=== PATIENT | female | born 1995 | race Caucasian/White ===

== ENCOUNTER 2018-11-18 16:30 | Inpatient (IN) | payer OTHER ==
[2018-11-18 17:22] VITALS: BMI 37.5
[2018-11-18] MEDS: ELECTROLYTE-148 SOLN 1,000 ML IV SCH (17:40)
[2018-11-18 18:19] LABS: BASO % 0.3 % (0-2.0); EOS % 0.2 % (0-4.5); HEMATOCRIT 35.1 % (32.4-45.2); HEMOGLOBIN 11.8 GM/dL (10.7-15.3); LYMPH % 18.6 % (8-40); MCH 27.9 pg (25.7-33.7); MCHC 33.6 g/dl (32.0-36.0); MEAN CELL VOLUME 83.2 fl (80-96); MEAN PLT VOLUME 10.2 fl (7.5-11.1); MONO % 4.7 % (3.8-10.2); NEUT % 76.2 % (42.8-82.8); PLATELET COUNT 184 K/MM3 (134-434); RBC 4.22 M/mm3 (3.60-5.2); RDW 15.4 % (11.6-15.6); WHITE BLOOD COUNT 7.7 K/mm3 (4.0-10.0)
[2018-11-18 18:42] LABS: INR 0.95 (0.83-1.09); PROTHROMBIN TIME (PATIENT) 11.2 SEC (9.7-13.0)
[2018-11-18 18:44] LABS: ACTIVATED PTT 32.2 SECONDS (25.2-36.5)
[2018-11-18 18:45] LABS: ANION GAP 9 MMOL/L (8-16); BLOOD UREA NITROGEN 7 mg/dL (7-18); CALCIUM 8.4 mg/dL (8.5-10.1); CHLORIDE 106 mmol/L (98-107); CO2 21 mmol/L (21-32); CREATININE 0.5 mg/dL (0.55-1.3); GLUCOSE,RANDOM 77 mg/dL (74-106); POTASSIUM 3.9 mmol/L (3.5-5.1); SODIUM 136 mmol/L (136-145)
--- NOTE | 2018-11-18 18:59 | HP ---
Past Medical History - Primary Care Physician PCP:: Augusto Rojas - Admission Chief Complaint: 39 by sono , 41 by weeks by date, previous c/s , PROM History of Present Illness: 23 yo f 39 weeks by sono 41 by date c/o rom since 3 pm 11/18/18 , clear fluid, mild cramps, no bleeding. no fever, cx 1ft, long, -3 mr, nitrazine positive , previous c/s ,wants , risks discussed History Source: Patient Limitations to Obtaining History: No Limitations - Past Medical History ...: 2 ...Para: 1 ...Term: 1 ...: 0 ...Spon : 0 ...Induced : 0 ...Multiple Gestation: 0 ...LMP: 02/04/18 ... Weeks Gestation by Dates: 41.0 ...EDC by Dates: 11/11/18 ...EDC by Sono: 11/21/18 - Past Surgical History Past Surgical History: Yes: Hx Myomectomy: No Hx Transabdominal Cerclage: No - Smoking History Smoking history: Never smoked Have you smoked in the past 12 months: No - Alcohol/Substance Use Hx Alcohol Use: No - Social History Usual Living Arrangement: Yes: With Spouse History of Recent Travel: No Home Medications - Allergies Allergies/Adverse Reactions: Allergies Allergy/AdvReac Type Severity Reaction Status Date / Time No Known Allergies Allergy Verified 11/18/18 17:03 - Home Medications Home Medications: Ambulatory Orders Vitamins (Sjr) - 1 tab PO DAILY 10/16/18 Review of Systems - Review of Systems Constitutional: reports: No Symptoms Eyes: reports: No Symptoms HENT: reports: No Symptoms Neck: reports: No Symptoms Cardiovascular: reports: No Symptoms Respiratory: reports: No Symptoms Gastrointestinal: reports: No Symptoms Genitourinary: reports: No Symptoms Breasts: reports: No Symptoms Reported Musculoskeletal: reports: No Symptoms Integumentary: reports: No Symptoms Neurological: reports: No Symptoms Endocrine: reports: No Symptoms Hematology/Lymphatic: reports: No Symptoms Psychiatric: reports: No Symptoms Physical Exam - Maternity Vital Signs: Vital Signs Temperature 98.3 F 11/18/18 18:00 Pulse Rate 81 11/18/18 18:00 Respiratory Rate 18 11/18/18 18:00 Blood Pressure 129/81 11/18/18 18:00 O2 Sat by Pulse Oximetry (%) Constitutional: Yes: Well Nourished, No Distress, Calm Eyes: Yes: WNL, Conjunctiva Clear, EOM Intact HENT: Yes: WNL, Atraumatic, Normocephalic Neck: Yes: WNL, Supple, Trachea Midline Cardiovascular: Yes: WNL, Regular Rate and Rhythm Breast(s): Yes: WNL - Abdominal Exam/OB Fundal Height: 38 Number of Fetuses: Single Presentation: Vertex Contractions: Yes Regularity: Irregular Intensity: Mild/Mod Monitor Mode: External Heart Rate Location: [facility] Category: I Accelerations: Uniform Decelerations: None - Vaginal Exam/OB Speculum Exam: No Dilatation (cm): 1 Effacement (%): 25 Amniotic Membrane Status: Ruptured Nitrazine Test: Positive Amniotic Fluid: Yes: Clear Presentation: Vertex/Position Station: -3 - Physical Exam Musculoskeletal: Yes: WNL Extremities: Yes: WNL Edema: Yes Edema: LLE: Trace, RLE: Trace Deep Tendon Reflex Grade: Normal +2 Psychiatric: Yes: WNL - Labs Lab Results: CBC, BMP 11/18/18 17:45 11/18/18 17:45 Hemorrhage Risk Assessment - Risk Factors Medium Risk Factors: Yes: None High Risk Factors: Yes: None Risk Score: 1 Risk Level: Medium Risk Problem List - Problems (1) Post term , 41 weeks Code(s): O48.0 - POST-TERM ; Z3A.41 - 41 WEEKS GESTATION OF (2) Post term , 41 weeks Code(s): O48.0 - POST-TERM ; Z3A.41 - 41 WEEKS GESTATION OF (3) PROM (premature rupture of membranes) Code(s): O42.90 - ANA ROM, 7TH0 BETW RUPT & ONST LABR, UNSP WEEKS OF GEST Qualifiers: PROM onset of labor timing: onset of labor more than 24 hours following rupture PROM gestational age: full term Qualified Code(s): O42.12 - Full- term premature rupture of membranes, onset of labor more than 24 hours following rupture (4) Previous section complicating Code(s): O34.219 - MATERNAL CARE FOR UNSP TYPE SCAR FROM PREVIOUS DEL Assessment/Plan admit , fhm wants , aware of risks revaluate after in active labor
[2018-11-18] MEDS ORDERED: PROMETHAZINE HCL 25 MG/1 ML VIAL IVPUSH ONE (19:00)
[2018-11-18] MEDS ORDERED: BUTORPHANOL TARTRATE 1 MG/ML VIAL IVPUSH ONE (19:00)
[2018-11-19] MEDS: ELECTROLYTE-148 SOLN 1,000 ML IV SCH (01:04)
[2018-11-19] MEDS ORDERED: CITRIC ACID/SODIUM CITRATE 30 ML UNIT-DOSE CUP PO ONE (08:28)
[2018-11-19] MEDS ORDERED: AMPICILLIN SODIUM 2 GM VIAL ONE (08:41)
[2018-11-19] MEDS ORDERED: AMPICILLIN - 2 GM in SODIUM CHLORIDE 100 ML IVPB ONE (09:00)
[2018-11-19] MEDS ORDERED: OXYTOCIN 20 UNITS in 0.9% NS 20 UNIT/1,000 ML INFUS.BAG IV ONE ×2 (10:26→11:52)
--- NOTE | 2018-11-19 10:30 | PN ---
Progress Note (short form) - Note Progress Note: cx 1 cm , long -3 ,srom, clear ,contraction irregular in view of prolonged PROm, previous c/s, no dilation, advised repeat c/s ,risks discussed Problem List - Problems (1) Post term , 41 weeks Code(s): O48.0 - POST-TERM ; Z3A.41 - 41 WEEKS GESTATION OF (2) Post term , 41 weeks Code(s): O48.0 - POST-TERM ; Z3A.41 - 41 WEEKS GESTATION OF (3) PROM (premature rupture of membranes) Code(s): O42.90 - ANA ROM, 7TH0 BETW RUPT & ONST LABR, UNSP WEEKS OF GEST Qualifiers: PROM onset of labor timing: onset of labor more than 24 hours following rupture PROM gestational age: full term Qualified Code(s): O42.12 - Full- term premature rupture of membranes, onset of labor more than 24 hours following rupture (4) Previous section complicating Code(s): O34.219 - MATERNAL CARE FOR UNSP TYPE SCAR FROM PREVIOUS DEL
[2018-11-19] MEDS ORDERED: morphine SULFATE/Preservative Free 0.5 MG/ML (1cc Syringe) ONE (10:40)
[2018-11-19] MEDS ORDERED: BENZOCAINE 28 GM HEMORRHOIDAL OINTMENT PR PRN (10:42)
[2018-11-19] MEDS ORDERED: oxyCODONE HCL 5 MG TABLET PO PRN ×2 (10:42)
[2018-11-19] MEDS ORDERED: WITCH HAZEL 50% (TUCKS) 40 PAD/JAR PAD TP PRN (10:42)
[2018-11-19] MEDS ORDERED: BENZOCAINE 20% 57 GM BOTTLE TP PRN (10:42)
[2018-11-19] MEDS ORDERED: METHYLERGONOVINE MALEATE 0.2 MG/1 ML AMP IM PRN (10:42)
[2018-11-19] MEDS ORDERED: diphenhydrAMINE HCL 25 MG CAPSULE (FP) PO PRN (10:42)
[2018-11-19] MEDS ORDERED: OXYTOCIN 20 UNITS in 0.9% NS 20 UNIT/1,000 ML INFUS.BAG IV SCH (10:45)
[2018-11-19] MEDS ORDERED: ONDANSETRON 4 MG/2 ML VIAL IVPUSH PRN (10:55)
[2018-11-19] MEDS ORDERED: ACETAMINOPHEN 325 MG TABLET (FP) PO PRN (10:55)
[2018-11-19] MEDS ORDERED: IBUPROFEN 600 MG TABLET (FP) PO PRN (10:55)
[2018-11-19] MEDS: IBUPROFEN 800 MG/8 ML IJ IVPB PRN ×2 (15:01→23:44)
[2018-11-19] MEDS: CEFAZOLIN 1 GM/D5W 1 GM/50 ML BAG IVPB SCH (18:26)
[2018-11-19] MEDS ORDERED: ceFAZolin SODIUM 1 GM VIAL ONE (19:23)
[2018-11-19] MEDS ORDERED: PHENYLEPHRINE HCL 10 MG/1 ML SINGLE DOSE VIAL ONE (19:23)
[2018-11-20] MEDS: CEFAZOLIN 1 GM/D5W 1 GM/50 ML BAG IVPB SCH (01:42)
--- NOTE | 2018-11-20 06:34 | PN ---
Progress Note (short form) - Note Progress Note: pod 1 doing well, ambulating, passing gas CBC, BMP 11/18/18 17:45 11/18/18 17:45 Last Vital Signs Temp Pulse Resp BP Pulse Ox 98.3 F 80 18 125/68 100 11/20/18 06:00 11/20/18 06:00 11/20/18 06:00 11/20/18 06:00 11/19/18 21:00 abdomen soft, no distension, no cva incision dry, clean no calf tenderness no excess vaginal bleeding plan ambulate, cbc, advance diet Problem List - Problems (1) Post term , 41 weeks Code(s): O48.0 - POST-TERM ; Z3A.41 - 41 WEEKS GESTATION OF (2) Post term , 41 weeks Code(s): O48.0 - POST-TERM ; Z3A.41 - 41 WEEKS GESTATION OF (3) PROM (premature rupture of membranes) Code(s): O42.90 - ANA ROM, 7TH0 BETW RUPT & ONST LABR, UNSP WEEKS OF GEST Qualifiers: PROM onset of labor timing: onset of labor more than 24 hours following rupture PROM gestational age: full term Qualified Code(s): O42.12 - Full- term premature rupture of membranes, onset of labor more than 24 hours following rupture (4) Previous section complicating Code(s): O34.219 - MATERNAL CARE FOR UNSP TYPE SCAR FROM PREVIOUS DEL
[2018-11-20 07:42] LABS: BASO % 0.4 % (0-2.0); EOS % 0.3 % (0-4.5); HEMATOCRIT 33.5 % (32.4-45.2); HEMOGLOBIN 11.4 GM/dL (10.7-15.3); LYMPH % 15.4 % (8-40); MCH 28.7 pg (25.7-33.7); MCHC 34.1 g/dl (32.0-36.0); MEAN CELL VOLUME 84.1 fl (80-96); MEAN PLT VOLUME 10.2 fl (7.5-11.1); MONO % 5.4 % (3.8-10.2); NEUT % 78.5 % (42.8-82.8); PLATELET COUNT 167 K/MM3 (134-434); RBC 3.98 M/mm3 (3.60-5.2); RDW 15.2 % (11.6-15.6); WHITE BLOOD COUNT 9.5 K/mm3 (4.0-10.0)
[2018-11-20] MEDS: IBUPROFEN 800 MG/8 ML IJ IVPB PRN (07:54)
[2018-11-20] MEDS: DEXTROSE 5%-LACTATED RINGERS 1,000 ML IV SCH (08:00)
--- NOTE | 2018-11-20 08:11 | OP ---
DATE OF OPERATION: 11/19/2018 PREOPERATIVE DIAGNOSIS: 39 weeks, previous section, ruptured membrane, trial of vaginal after , failed vaginal after , failure to dilate. POSTOPERATIVE DIAGNOSIS: 39 weeks, previous section, ruptured membrane, trial of vaginal after , failed vaginal after , failure to dilate. PROCEDURE: Repeat low segment transverse section. SURGEON: Augusto Rojas MD BLENDING MACHINE FEEDER: JORI Cooper ANESTHESIA: Spinal. ANESTHESIOLOGIST: Fernando Harrell MD ESTIMATED BLOOD LOSS: 500 mL OPERATION: Patient was taken to the operating room, had adequate spinal anesthesia. Abdomen and perineum were prepped and draped. Pfannenstiel abdominal skin incision was made over the previous incision. Abdominal wall was cut [id number] until peritoneum was exposed and incised. Upon entering the abdominal cavity, lower uterine segment was identified and uterovesical fold of peritoneum established. Bladder was pushed down. Then a low transverse uterine incision was made and incision extended laterally. Amniotic sac was entered. Head delivered from occiput posterior position. Nasopharynx was suctioned and live baby was delivered without any difficulty. Placenta was delivered manually. Uterine cavity was cleaned out of remaining tissue. Uterine incision was closed in 2 layers; first layer with 0 Biosyn continuous suture, the second layer with 0 Biosyn imbricating the first layer. Bladder flap was closed with 0 Biosyn continuous suture. Both tubes and ovaries were checked and normal. No active bleeding was seen. All of the lap pad, sponge and instrument counts were correct. Then peritoneum was closed with 0 Biosyn continuous suture. Muscles were brought together with interrupted suture of 0 Biosyn. Fascia was closed with 0 Biosyn continuous suture, subcutaneous fat interrupted suture of 0 Biosyn and the skin was closed with chaparrita. Patient tolerated the procedure well, left the OR in good condition. Juan Carlos [id number]
[2018-11-20] MEDS: ENOXAPARIN NA (PORCINE) 40 MG/0.4 ML DISP.SYRIN SQ SCH (09:55)
[2018-11-20] MEDS ORDERED: BISACODYL 10 MG SUPP.RECT PR PRN (10:42)
[2018-11-20] MEDS ORDERED: OXYTOCIN 30 UNITS in 0.9% NS 30 UNIT/500 ML INFUS.BAG IVPB ONE (11:24)
[2018-11-20] MEDS: AMPICILLIN - 1 GM in SODIUM CHLORIDE 100 ML IVPB SCH (13:11)
--- NOTE | 2018-11-20 14:26 | PN ---
Progress Note (short form) - Note Progress Note: POD1 s/p spinal with duramorph for C/S. No back pain, no NOLEN, able to ambulate. Incisional pain is mimimal. No anesthetic issues/complications.
[2018-11-20] MEDS: IBUPROFEN 600 MG TABLET (FP) PO PRN (16:38)
[2018-11-20] MEDS: ACETAMINOPHEN 325 MG TABLET (FP) PO PRN (16:38)
[2018-11-20] MEDS: SIMETHICONE 80 MG TAB.CHEW (FP) PO PRN (16:39)
[2018-11-21] MEDS: IBUPROFEN 600 MG TABLET (FP) PO PRN ×3 (04:48→19:20)
[2018-11-21] MEDS: ACETAMINOPHEN 325 MG TABLET (FP) PO PRN ×3 (04:48→19:21)
[2018-11-21] MEDS: SIMETHICONE 80 MG TAB.CHEW (FP) PO PRN ×3 (04:49→19:20)
[2018-11-21] MEDS: AMPICILLIN - 1 GM in SODIUM CHLORIDE 100 ML IVPB SCH (07:08)
[2018-11-21] MEDS: ENOXAPARIN NA (PORCINE) 40 MG/0.4 ML DISP.SYRIN SQ SCH (10:09)
--- NOTE | 2018-11-21 14:56 | PN ---
Post Progress Note - Subjective Subjective: 23 yo Para 2 status post repeat , seen and evaluated, doing well. She's out of bed to chair, breast feeding. Post Day: 2 Type of Delivery: Repeat C/S Vital Signs: Vital Signs Temperature 97.8 F 11/21/18 10:00 Pulse Rate 81 11/21/18 10:00 Respiratory Rate 20 11/21/18 10:00 Blood Pressure 119/70 11/21/18 10:00 O2 Sat by Pulse Oximetry (%) 100 11/19/18 21:00 Breast Exam: Yes: Soft Uterus: Yes: Fundus Firm Incision: Yes: Dressing dry and intact Abdomen/GI: Yes: Abdomen soft, Tolerating PO Lochia: Yes: Rubra Lochia, amount: Small Extremities: Yes: Calves non-tender Activity: Ambulating - Labs Labs: CBC WBC 9.5 K/mm3 (4.0-10.0) 11/20/18 06:50 RBC 3.98 M/mm3 (3.60-5.2) 11/20/18 06:50 Hgb 11.4 GM/dL (10.7-15.3) 11/20/18 06:50 Hct 33.5 % (32.4-45.2) 11/20/18 06:50 MCV 84.1 fl (80-96) 11/20/18 06:50 MCH 28.7 pg (25.7-33.7) 11/20/18 06:50 MCHC 34.1 g/dl (32.0-36.0) 11/20/18 06:50 RDW 15.2 % (11.6-15.6) 11/20/18 06:50 Plt Count 167 K/MM3 (134-434) 11/20/18 06:50 MPV 10.2 fl (7.5-11.1) 11/20/18 06:50 Absolute Neuts (auto) 7.4 K/mm3 (1.5-8.0) 11/20/18 06:50 Neutrophils % 78.5 % (42.8-82.8) 11/20/18 06:50 Lymphocytes % 15.4 % (8-40) 11/20/18 06:50 Monocytes % 5.4 % (3.8-10.2) 11/20/18 06:50 Eosinophils % 0.3 % (0-4.5) 11/20/18 06:50 Basophils % 0.4 % (0-2.0) 11/20/18 06:50 Nucleated RBC % 0 % (0-0) 11/20/18 06:50 Problem List - Problems (1) Status post repeat low transverse section Code(s): Z98.891 - HISTORY OF UTERINE SCAR FROM PREVIOUS SURGERY Assessment/Plan Status post repeat Ambulation Analgesia as needed Continue care
[2018-11-21] MEDS: ELECTROLYTE-148 SOLN 1,000 ML IV SCH (19:12)
[2018-11-21] MEDS: DEXTROSE 5%-LACTATED RINGERS 1,000 ML IV SCH (19:13)
[2018-11-21] MEDS ORDERED: SENNOSIDES/DOCUSATE COMBO (SENNA PLUS) TABLET (UD) PO PRN (22:00)
[2018-11-22] MEDS: SIMETHICONE 80 MG TAB.CHEW (FP) PO PRN (03:28)
[2018-11-22] MEDS: ACETAMINOPHEN 325 MG TABLET (FP) PO PRN (03:29)
[2018-11-22 08:07] LABS: BASO % 0.2 % (0-2.0); HEMATOCRIT 31.8 % (32.4-45.2); HEMOGLOBIN 10.6 GM/dL (10.7-15.3); LYMPH % 23.8 % (8-40); MCH 27.9 pg (25.7-33.7); MCHC 33.3 g/dl (32.0-36.0); MEAN CELL VOLUME 83.7 fl (80-96); MEAN PLT VOLUME 9.8 fl (7.5-11.1); MONO % 6.2 % (3.8-10.2); NEUT % 67.8 % (42.8-82.8); PLATELET COUNT 206 K/MM3 (134-434); RDW 15.8 % (11.6-15.6); WHITE BLOOD COUNT 6.2 K/mm3 (4.0-10.0)
--- NOTE | 2018-11-22 08:23 | DS ---
Physical Exam-ARCHITECT IN TRAINING Vital Signs: Vital Signs Temperature 98.0 F 11/21/18 21:55 Pulse Rate 75 11/21/18 21:55 Respiratory Rate 18 11/21/18 21:55 Blood Pressure 114/79 11/21/18 21:55 O2 Sat by Pulse Oximetry (%) 100 11/19/18 21:00 Constitutional: Yes: Well Nourished, No Distress, Calm Eyes: Yes: WNL, Conjunctiva Clear, EOM Intact HENT: Yes: WNL, Atraumatic, Normocephalic Neck: Yes: WNL, Supple, Trachea Midline Cardiovascular: Yes: WNL, Regular Rate and Rhythm Respiratory: Yes: WNL, Regular, CTA Bilaterally Gastrointestinal: Yes: WNL ...Rectal Exam: Yes: WNL Renal/: Yes: WNL Uterus: Yes: Firm ....Post : Yes: Uterus firm, Uterus non-tender, Slight lochia rubra Breast(s): Yes: WNL Musculoskeletal: Yes: WNL Extremities: Yes: WNL Edema: No Integumentary: Yes: WNL Wound/Incision: Yes: Clean/Dry, Well Approximated, Ivan Intact Neurological: Yes: WNL, Alert, Oriented ...Motor Strength: WNL Psychiatric: Yes: WNL, Alert, Oriented Labs: CBC, BMP 11/18/18 17:45 Delivery - Delivery Section: Primary (no complication) Type of Anesthesia: Spinal Episiotomy/Laceration: None EBL (cc): 500 Delivery, Single - Stages of Labor Date 1st Stage Initiatied: 11/18/18 Time 1st Stage Initiated: 15:00 Date of Delivery: 11/19/18 Time of Delivery: 11:03 Time Placenta Delivered: 11:04 Placenta: Yes: Spontaneous - Condition of Infant Landing Gear Mechanic/Bridge Instructor Present: Yes Name: Danyell Shultz Infant Gender: Female Weight: 7 lb 7 oz Position: Right, OT Total Hours ROM (Hrs/Mins): 20HRS 4MIN - 1 Minute Total Score: 9 5 Minutes Total Score: 9 - Feeding Plan Initial Plan: Exclusive throughout hospitalization Discharge Summary Reason For Visit: LABOR Current Active Problems PROM (premature rupture of membranes) (Acute) Post term , 41 weeks (Acute) Post term , 41 weeks (Acute) Previous section complicating (Acute) Status post repeat low transverse section (Acute) Procedures: Principal: LST c/s - Instructions Diet, Activity, Other Instructions: regular diet, follow up [facility] care 1 week, if fever, pain, heavy vaginal bleeding call Referrals: Augusto Rojas MD [Staff Physician] - - Home Medications Comprehensive Discharge Medication List: Ambulatory Orders Vitamins (Sjr) - 1 tab PO DAILY 10/16/18 Ibuprofen [Motrin -] 600 mg PO QID #28 tablet 11/22/18
[2018-11-22 09:17] VITALS: BP 129/73; PULSE 81; TEMP 97.8
[2018-11-22] MEDS: ENOXAPARIN NA (PORCINE) 40 MG/0.4 ML DISP.SYRIN SQ SCH (09:42)
--- NOTE | 2018-11-24 15:29 | PATH ---
Surgical Pathology Report Patient Name: BREN BURCH Med. Rec. #: [id number] /Age/Gender: 1995 (Age: 23) / F Account: [id number] Location: [facility] OBS/PULP OPERATOR Taken: 11/19/2018 Received: 11/20/2018 Reported: 11/24/2018 Physicians: Augusto Rojas M.D. Specimen(s) Received PLACENTA Clinical History A , 39.5 weeks, fail , prolonged rupture of membranes Final Diagnosis PLACENTA: THIRD TRIMESTER PLACENTA WITH FOCAL PERIVILLOUS FIBRIN DEPOSITION AND FOCAL CALCIFICATION. TRIVASCULAR CORD. MEMBRANES WITH NO DIAGNOSTIC ABNORMALITIES. Electronically Signed Hailey Palacios M.D. Gross Description The specimen is received fresh labeled placenta and is a 455 gram, 18.0 x 15.0 x 2.3 cm. placenta with attached membranes and umbilical cord. The attached membranes are kay, thick, and insert marginally. The umbilical cord measures 30 cm. in length and averages 1 cm. in diameter. The cord inserts eccentrically, 4.5 cm. to the nearest margin. No true knots or strictures are identified. Cut surface of the umbilical cord reveals 3 vessels. The surface is bach-blue with minimal fibrin deposition and appropriate caliber vessels. The maternal surface is red-brown with focal defects. Sectioning reveals red-brown, spongy parenchyma. No lesions are identified. Instrument Room Technician sections are submitted in three cassettes as follows: 1- membrane rolls and umbilical cord; 2-3- full thickness sections of placenta. 11/21/201811/21/2018
== END 2018-11-22 11:20 | disposition home or self-care (01) | DRG 540 ==
LOC: JLDR 16:30 → J3W 11-19 13:43
PROVIDERS: ADMIT Obstetrics & Gynecology; ATTEND Obstetrics & Gynecology
PROC: 10D00Z1 Extraction of Products of Conception, Low, Open Approach (ICD-10-PCS; principal; 2018-11-19)
DX: O42.12 Full-term premature rupture of membranes, onset of labor more than 24 hours following rupture (principal); O62.0 Primary inadequate contractions; O34.219 Maternal care for unspecified type scar from previous cesarean delivery; Z3A.39 39 weeks gestation of pregnancy; Z37.0 Single live birth
CPT/HCPCS: 36415; 80048; 85025; 85610; 85730; 86593; 86850; 86900; 86901; 88307-TC

== ENCOUNTER 2019-03-30 02:13 | Inpatient (IN) | payer OTHER ==
[2019-03-30] MEDS ORDERED: ACETAMINOPHEN 1000 MG/100 ML VIAL (NON FORMULARY) IVPB ONE (02:40)
[2019-03-30] MEDS ORDERED: FAMOTIDINE 20 MG/50 ML IVPB 20 MG/50 ML MG IVPB ONE (02:40)
[2019-03-30] MEDS ORDERED: SODIUM CHLORIDE 1,000 ML IV STA (02:40)
--- NOTE | 2019-03-30 02:40 | PDOC ---
History of Present Illness - General Chief Complaint: Pain, Acute Stated Complaint: ABD PAIN Time Seen by Provider: 03/30/19 02:35 History Source: Patient Exam Limitations: No Limitations - History of Present Illness Initial Comments: 24 yo obese F who denies any significant pmh presents to the Er with 1 month of epigastric abdominal pain which radiates to the back. She states it was particularly bad today so she decided to come and be evaluated. She states it is occasionally worse after she eats food. She states that she had two episodes of nausea and NBNB vomitus today. She states her bowel movements have been normal with no diarrhea or constipation. Patient states she took motrin for her pain which helped significantly for a few hours but then the pain returned. Denies fevers, chills, or infections. Denies dysuria, frequency, urgency. LMP: 03/11 PCP: None PSH: Social Hx: Denies smoking, drinking, or other substance usage Allergies: NKA, NKDA Past History - Past Medical History Allergies/Adverse Reactions: Allergies Allergy/AdvReac Type Severity Reaction Status Date / Time No Known Allergies Allergy Verified 11/18/18 17:03 Asthma: No Cancer: No Cardiac Disorders: No Diabetes: No HTN: No Seizures: No Thyroid Disease: No - Suicide/Smoking/Psychosocial Hx Smoking History: Never smoked Have you smoked in the past 12 months: No Hx Alcohol Use: No Drug/Substance Use Hx: No Hx Substance Use Treatment: No Review of Systems - Review of Systems Able to Perform ROS?: Yes Comments:: CONSTITUTIONAL: Absent: fever, no chills, no fatigue EYES: Absent: visual changes ENT: Absent: ear pain, no sore throat CARDIOVASCULAR: Absent: chest pain, no palpitations RESPIRATORY: Absent: cough, no SOB GI: Present: Abdominal pain, nausea, vomiting Absent: no constipation, no diarrhea GENITOURINARY: Absent: dysuria, no frequency, no hematuria MUSKULOSKELETAL: Present: back pain Absent: no arthralgia, no myalgia SKIN: Absent: rash NEURO: Absent: headache *Physical Exam - Physical Exam Comments: GENERAL: Well-appearing, well-nourished. Mild distress. HEENT: Normocephalic, atraumatic. PERRL, EOM intact. CARDIOVASCULAR: Normal S1, S2. Regular rate and rhythm. PULMONARY: No evidence of respiratory distress. Lungs clear to auscultation bilaterally. No wheezing, rales or rhonchi. ABDOMEN: There is significant epigastric and RUQ TTP. + torres sign. Normal bowel sounds. Abdomen is soft with no guarding or rebound. EXTREMITIES: Normal ROM in all four extremities. No gross deformities. SKIN: Warm, dry. No rash NEUROLOGICAL: No focal neurological deficits. Procedures - Bedside Ultrasound Bedside Ultrasound: Gallbladder Remarks: Gallbladder POCUS: Patient has multiple large stones with shadowing at the neck + Sono torres sign + Wall edema + Wall thickening + Tyler-cholecystic fluid Impression: Acute cholecystitis ED Treatment Course - LABORATORY CBC & Chemistry Diagram: 03/30/19 03:06 03/30/19 03:06 Medical Decision Making - Medical Decision Making 24 yo obese F who denies any significant pmh presents to the Er with 1 month of epigastric abdominal pain which radiates to the back. She states it was particularly bad today so she decided to come and be evaluated. She states it is occasionally worse after she eats food. She states that she had two episodes of nausea and NBNB vomitus today. She states her bowel movements have been normal with no diarrhea or constipation. Patient states she took motrin for her pain which helped significantly for a few hours but then the pain returned. Denies fevers, chills, or infections. Denies dysuria, frequency, urgency. LMP: 03/11 Vital Signs Temp Pulse Resp BP Pulse Ox 97.9 F 83 18 119/84 100 03/30/19 02:46 03/30/19 02:46 03/30/19 02:46 03/30/19 02:46 03/30/19 02:46 MDM: 24 yo obese F presents with a month of epigastric pain radiating to back with acute exacerbation. Pain seems most suspicious to be either gastric vs gallbladder in origin. Will start with labs, urine, and a GI cocktail than do a bedisde RUQ us to assess for gallstones/cholecystitis. Plan: Labs, urine, IV hydration, analgesia, GI cocktail, POCUS RUQ, re-assess. Labs: Elevated LFT's Urine: Unremarkable US: large stones at neck with shadowing, + sono torres sign, tyler-chol fluid, wall edema and thickening Impression: Cholecystitis Patient will be signed out to day team to obtain a formal RUQ us, then have surgery consulted, and admitted to hospital. Disposition: Will be adfmitted to hospital *DC/Admit/Observation/Transfer Diagnosis at time of Disposition: Choledocholithiasis, Cholecystitis - Discharge Dispostion Condition at time of disposition: Stable Decision to Admit order: Yes - Referrals - Patient Instructions - Post Discharge Activity
[2019-03-30] MEDS ORDERED: ONDANSETRON 4 MG/2 ML VIAL IVPUSH ONE ×2 (02:41→07:51)
[2019-03-30] MEDS ORDERED: MAG HYDROX/AL HYDROX/SIMETH -MYLANTA- ORAL SUSPENSION PO ONE (02:41)
[2019-03-30] MEDS ORDERED: ACETAMINOPHEN INJECTION 100 ML IVPB ONE (02:55)
[2019-03-30] MEDS ORDERED: ONDANSETRON 4 MG/2 ML VIAL ONE ×2 (02:55→07:59)
[2019-03-30] MEDS ORDERED: MAG HYDROX/AL HYDROX/SIMETH 30 ML UNIT-DOSE CUP ONE (02:55)
[2019-03-30 03:16] LABS: BASO % 0.6 % (0-2.0); EOS % 0.9 % (0-4.5); HEMATOCRIT 39.5 % (32.4-45.2); HEMOGLOBIN 13.3 GM/dL (10.7-15.3); LYMPH % 23.7 % (8-40); MCH 28.6 pg (25.7-33.7); MCHC 33.8 g/dl (32.0-36.0); MEAN CELL VOLUME 84.8 fl (80-96); MEAN PLT VOLUME 9.2 fl (7.5-11.1); MONO % 7.4 % (3.8-10.2); NEUT % 67.4 % (42.8-82.8); PLATELET COUNT 240 K/MM3 (134-434); RBC 4.66 M/mm3 (3.60-5.2); RDW 13.6 % (11.6-15.6); WHITE BLOOD COUNT 4.9 K/mm3 (4.0-10.0)
[2019-03-30 03:26] LABS: URINE APPEARANCE CLEAR; URINE BILIRUBIN 2+ (NEGATIVE); URINE COLOR DK YELLOW; URINE GLUCOSE (UA) NEGATIVE (NEGATIVE); URINE KETONE NEGATIVE (NEGATIVE); URINE LEUK ESTERASE NEGATIVE (NEGATIVE); URINE NITRITE NEGATIVE (NEGATIVE); URINE PROTEIN TRACE (NEGATIVE)
[2019-03-30 03:43] LABS: ALBUMIN 4.3 g/dl (3.4-5.0); BILIRUBIN,TOTAL 2.4 mg/dL (0.2-1); BLOOD UREA NITROGEN 10.4 mg/dL (7-18); CALCIUM 9.5 mg/dL (8.5-10.1); CREATININE 0.6 mg/dL (0.55-1.3); POTASSIUM 3.8 mmol/L (3.5-5.1); TOT PROT 7.8 g/dl (6.4-8.2)
--- NOTE | 2019-03-30 04:01 | PDOC ---
Attending Attestation - Resident Resident Name: Andrea Carvajal - ED Attending Attestation I have performed the following: I have examined & evaluated the patient, The case was reviewed & discussed with the resident, I agree w/resident's findings & plan, Exceptions are as noted - HPI HPI: 03/30/19 04:20 24F no pmh, obese here with 1 month of episodic epigastric abdominal px, worsened by eating, a/w nbnb nv. No f/c, sick contacts, recent travel, surgeries - Physicial Exam PE: 03/30/19 04:21 NAD, AOx3 +RUQ TTP, no guarding, no rebound Agree with detailed exam as documented by resident - Medical Decision Making 03/30/19 04:22 Gastritis? Given hpi + exam findings concern for gallbladder pathology POCUS +GB wall thickening, stones f/u labs, RUQ US analgesia re-eval dispo per clinical course
[2019-03-30] MEDS ORDERED: morphine CARPU-JECT 4 MG/1 ML DISP.SYRIN IVPUSH ONE ×2 (04:30→05:54)
[2019-03-30] MEDS ORDERED: SODIUM CHLORIDE 1,000 ML IV SCH (04:30)
[2019-03-30] MEDS ORDERED: morphine SULFATE 4 MG/ML VIAL ONE ×2 (04:40→05:57)
[2019-03-30 05:35] LABS: INR 1.1 (0.83-1.09)
[2019-03-30] MEDS ORDERED: METOCLOPRAMIDE HCL INJECTION 10 MG/2 ML VIAL ONE (05:56)
[2019-03-30] MEDS ORDERED: METOCLOPRAMIDE HCL INJECTION 10 MG/2 ML VIAL IVPUSH ONE (05:56)
--- NOTE | 2019-03-30 07:36 | PDOC ---
*Physical Exam - Vital Signs Last Vital Signs Temp Pulse Resp BP Pulse Ox 97.9 F 75 17 120/71 100 03/30/19 02:46 03/30/19 06:06 03/30/19 06:06 03/30/19 06:06 03/30/19 06:08 ED Treatment Course - LABORATORY CBC & Chemistry Diagram: 03/30/19 03:06 03/30/19 03:06 - ADDITIONAL ORDERS Additional order review: Laboratory Results 03/30/19 03/30/19 03/30/19 04:46 04:46 04:46 PT with INR 13.00 INR 1.10 H PTT (Actin FS) 34.2 Sodium Potassium Chloride Carbon Dioxide Anion Gap BUN Creatinine Est GFR (CKD-EPI)AfAm Est GFR (CKD-EPI)NonAf Random Glucose Lactic Acid Calcium Total Bilirubin AST ALT Alkaline Phosphatase Total Protein Albumin Lipase Urine Color Urine Appearance Urine pH Ur Specific [place] Urine Protein Urine Glucose (UA) Urine Ketones Urine Blood Urine Nitrite Urine Bilirubin Urine Urobilinogen Ur Leukocyte Esterase Urine HCG, Qual Blood Type O POSITIVE Antibody Screen Negative 03/30/19 03/30/19 03/30/19 03:06 03:06 03:01 PT with INR INR PTT (Actin FS) Sodium 138 Potassium 3.8 Chloride 103 Carbon Dioxide 26 Anion Gap 9 BUN 10.4 Creatinine 0.6 Est GFR (CKD-EPI)AfAm 145.80 Est GFR (CKD-EPI)NonAf 125.80 Random Glucose 104 Lactic Acid 0.6 Calcium 9.5 Total Bilirubin 2.4 H AST 755 H ALT 626 H Alkaline Phosphatase 183 H Total Protein 7.8 Albumin 4.3 Lipase 121 Urine Color Urine Appearance Urine pH Ur Specific [place] Urine Protein Urine Glucose (UA) Urine Ketones Urine Blood Urine Nitrite Urine Bilirubin Urine Urobilinogen Ur Leukocyte Esterase Urine HCG, Qual Negative Blood Type Antibody Screen 03/30/19 03:01 PT with INR INR PTT (Actin FS) Sodium Potassium Chloride Carbon Dioxide Anion Gap BUN Creatinine Est GFR (CKD-EPI)AfAm Est GFR (CKD-EPI)NonAf Random Glucose Lactic Acid Calcium Total Bilirubin AST ALT Alkaline Phosphatase Total Protein Albumin Lipase Urine Color Dk yellow Urine Appearance Clear Urine pH 6.0 Ur Specific [place] 1.029 Urine Protein Trace Urine Glucose (UA) Negative Urine Ketones Negative Urine Blood Negative Urine Nitrite Negative Urine Bilirubin 2+ H Urine Urobilinogen 1.0 Ur Leukocyte Esterase Negative Urine HCG, Qual Blood Type Antibody Screen 03/30/19 03:06 RBC 4.66 MCV 84.8 MCHC 33.8 RDW 13.6 D MPV 9.2 Neutrophils % 67.4 Lymphocytes % 23.7 Monocytes % 7.4 Eosinophils % 0.9 Basophils % 0.6 - Medications Given in the ED: ED Medications Discontinued Medications Generic Name Dose Route Start Last Admin Trade Name Fremarco antonio PRN Reason Stop Dose Admin Acetaminophen 1,000 mg 03/30/19 02:40 03/30/19 03:00 Ofirmev Injection - IVPB 03/30/19 02:41 1,000 mg ONCE ONE Administration Al Hydroxide/Mg Hydroxide 30 ml 03/30/19 02:41 03/30/19 03:00 Mylanta Suspension - PO 03/30/19 02:42 30 ml ONCE ONE Administration Famotidine/Sodium Chloride 20 mg in 50 mls @ 100 mls/hr 03/30/19 02:40 03:40 Pepcid 20 Mg Premixed Ivpb - IVPB 03/30/19 03:09 100 mls/hr ONCE ONE Administration Sodium Chloride 1,000 mls @ 1,000 mls/hr 03/30/19 02:40 03/30/19 03:00 Normal Saline - IV 03/30/19 03:39 1,000 mls/hr ASDIR STA Administration Metoclopramide HCl 10 mg 03/30/19 05:56 03/30/19 06:07 Reglan Injection - IVPUSH 03/30/19 05:57 10 mg ONCE ONE Administration Morphine Sulfate 4 mg 03/30/19 04:30 03/30/19 04:50 Morphine Injection - IVPUSH 03/30/19 04:31 4 mg ONCE ONE Administration Morphine Sulfate 4 mg 03/30/19 05:54 03/30/19 06:07 Morphine Injection - IVPUSH 03/30/19 05:55 4 mg ONCE ONE Administration Ondansetron HCl 4 mg 03/30/19 02:41 03/30/19 03:00 Zofran Injection IVPUSH 03/30/19 02:42 4 mg ONCE ONE Administration Medical Decision Making - Medical Decision Making Pt was signed out to me by resident Dr. Carvajal, who explained the presentation, ED course, any pending results, and needed interventions. Pending results include RUQ US. Pt is currently stable and is lying comfortably. 03/30/19 07:33 Starting maintenance fluids (LR). 03/30/19 07:36 Providing 1 IV dilaudid and 4 mg IV zofran for continued pain and nausea. Pt being taken for RUQ US. 03/30/19 07:56 US showed multiple stones, CBD dilation -- likely needs to be evaluated with MRCP Paging surgery on-call (DR. Mikie Mcbride) and GI (DR. Russo) 03/30/19 09:03 Spoke with surgery (Dr. Garland) who is on board for alina after MRCP Paged GI service. 03/30/19 09:23 Dr. Russo will see the pt, recommending non-contrast MRCP. Providing 2 g ancef for prophylaxis. Pt to be admitted to hospitalist team. 03/30/19 09:32 *DC/Admit/Observation/Transfer Diagnosis at time of Disposition: Choledocholithiasis - Discharge Dispostion Condition at time of disposition: Stable Decision to Admit order: Yes - Referrals - Patient Instructions - Post Discharge Activity
[2019-03-30] MEDS ORDERED: LACTATED RINGERS SOLUTION 1,000 ML/1,000 ML INFUS.BAG IV SCH ×3 (07:45→21:30)
[2019-03-30] MEDS ORDERED: HYDROmorphone HCL CARPU-JECT 2 MG/1 ML DISP.SYRIN IVPUSH ONE (07:54)
[2019-03-30] MEDS ORDERED: HYDROmorphone HCl 2 MG/ML VIAL ONE (07:59)
[2019-03-30] MEDS ORDERED: ceFAZolin 2 GRAM PREMIX BAG IVPB ONE (09:31)
[2019-03-30] MEDS ORDERED: INDOMETHACIN 50 MG RECTAL SUPPOSITORY PR ONE (10:18)
[2019-03-30] MEDS ORDERED: CEFAZOLIN 1 GM/D5W 2 GM/100 ML BAG ONE (10:26)
[2019-03-30] MEDS ORDERED: IBUPROFEN 600 MG TABLET (FP) PO PRN (12:03)
[2019-03-30] MEDS ORDERED: LACTATED RINGERS SOLUTION 1,000 ML IV SCH (12:15)
--- NOTE | 2019-03-30 13:17 | PN ---
Teaching Attending Note Name of Resident: Sheila Chamberlain ATTENDING PHYSICIAN STATEMENT I saw and evaluated the patient. I reviewed the resident's note and discussed the case with the resident. I agree with the resident's findings and plan as documented. Seen and examined; please see resident note for further historical information. Briefly, patient presents with 1x month abd pain with transaminitis; RUQ us shows thickened GB wall with no fluid; 1.5cm dilated CBD. Concern for choledocholithiasis; doesn't fit pentad. GI and Gen Sgy following (Dr. Russo , Dr. Freire). She was given ANCEF and is being prepped for ERCP. No home meds documented VS, labs, imaging reviewed NAD, AAO, resting comfortably in bed NC AT EOMI PERRLA RUQ tender with no distention, +BS CN2-12 wnl, no fnd Normal mood, appropriate affect. QTc 422 ASSESSMENT AND PLAN: Patient presents with choledocholithiasis; GI and sgy following and getting ERCP (initial plan was MRCP). Got ancef; will continue abx and monitor to see if we need additonal (afeb, no wbc, wall thickening without perichole fluid). Advance diet per GI. Isotonic fluids. # Acute choledocholithiasis, r/o cholecystitis # Obesity (BMI=35) Full Code
--- NOTE | 2019-03-30 13:33 | HP ---
<Sheila Chamberlain - Last Filed: 03/30/19 18:40> CHIEF COMPLAINT: Abdominal pain PCP: None HISTORY OF PRESENT ILLNESS: 24 y/o F with no significant PMHx presents Abdominal pain. Patient mentions that her pain began 1 month ago; primarily located in the midepigastric area, described as 2/10, waxxing and wanning pressure worse after eating that would worsen when standing from a supine position. Since than the pain has not changed in nature until yesterday when her pain increased to 5/10 and became constant. She was able to tolerate PO intake yesterday and had normal BMs. Patient woke overnight with sudden onset 10/10 midepigastric, sharp pain that radiated to her RUQ and straight through to her lower thoracic supine, that worsens with inspiration and movement prompting her to visit the ED. This was accompanied by nausea and 6 episodes of vomiting (initially green, now yellow) without any associated blood. LMP 03/11, normal for her without excessive bleeding This is the first time she has experienced this pain. No associated trauma or rash. Denies any associated fevers, chest pain, SOB, diarrhea, constipation. ER course was notable for: (1) Ancef, Fluids, analgesia, Antiemesis (2) GI, Gen Surg consult (3) Recent Travel: Denies PAST MEDICAL HISTORY: Denies PAST SURGICAL HISTORY: x 2 Social History: Smoking: Denies Alcohol: Denies Drugs: Denies Occupation: None Residence: at home with and children Family History: Mother with nephrolithiasis Allergies No Known Allergies Allergy (Verified 11/18/18 17:03) HOME MEDICATIONS: REVIEW OF SYSTEMS As per HPI PHYSICAL EXAMINATION Vital Signs - 24 hr 03/30/19 03/30/19 03/30/19 02:46 04:51 06:06 Temperature 97.9 F Pulse Rate 83 Pulse Rate [ 88 75 Left] Respiratory 18 17 17 Rate Blood Pressure 119/84 Blood Pressure 141/90 120/71 [Left Arm] O2 Sat by Pulse 100 99 100 Oximetry (%) 03/30/19 03/30/19 06:08 11:59 Temperature 98.8 F Pulse Rate Pulse Rate [ 75 Left] Respiratory 16 Rate Blood Pressure Blood Pressure 145/102 H [Left Arm] O2 Sat by Pulse 100 98 Oximetry (%) GENERAL: A&Ox3, Mild Distress HEAD: NCAT EYES: PERRL, EOmi, sclera anicteric EARS, NOSE, THROAT: Moist mucous membranes. NECK: No JVD, Supple LUNGS: CTAB. No wheezes, no crackles. HEART: Regular rate and rhythm, normal S1 and S2 without murmur ABDOMEN: Soft, Tender to palpation in the midepigastrum and RUQ, not distended, + bowel sounds, no guarding, no rebound, + Kinder sign MUSCULOSKELETAL: No CVA tenderness. EXTREMITIES: 2+ pulses, No peripheral edema. NEUROLOGICAL: Cranial nerves II-XII intact. Normal speech. SKIN: Warm, dry Laboratory Last Values WBC 4.9 K/mm3 (4.0-10.0) 03/30/19 03:06 RBC 4.66 M/mm3 (3.60-5.2) 03/30/19 03:06 Hgb 13.3 GM/dL (10.7-15.3) 03/30/19 03:06 Hct 39.5 % (32.4-45.2) D 03/30/19 03:06 MCV 84.8 fl (80-96) 03/30/19 03:06 MCH 28.6 pg (25.7-33.7) 03/30/19 03:06 MCHC 33.8 g/dl (32.0-36.0) 03/30/19 03:06 RDW 13.6 % (11.6-15.6) D 03/30/19 03:06 Plt Count 240 K/MM3 (134-434) 03/30/19 03:06 MPV 9.2 fl (7.5-11.1) 03/30/19 03:06 Absolute Neuts (auto) 3.3 K/mm3 (1.5-8.0) 03/30/19 03:06 Neutrophils % 67.4 % (42.8-82.8) 03/30/19 03:06 Lymphocytes % 23.7 % (8-40) 03/30/19 03:06 Monocytes % 7.4 % (3.8-10.2) 03/30/19 03:06 Eosinophils % 0.9 % (0-4.5) 03/30/19 03:06 Basophils % 0.6 % (0-2.0) 03/30/19 03:06 Nucleated RBC % 0 % (0-0) 03/30/19 03:06 PT with INR 13.00 SEC (9.7-13.0) 03/30/19 04:46 INR 1.10 (0.83-1.09) H 03/30/19 04:46 PTT (Actin FS) 34.2 SECONDS (25.2-36.5) 03/30/19 04:46 Sodium 138 mmol/L (136-145) 03/30/19 03:06 Potassium 3.8 mmol/L (3.5-5.1) 03/30/19 03:06 Chloride 103 mmol/L (98-107) 03/30/19 03:06 Carbon Dioxide 26 mmol/L (21-32) 03/30/19 03:06 Anion Gap 9 MMOL/L (8-16) 03/30/19 03:06 BUN 10.4 mg/dL (7-18) 03/30/19 03:06 Creatinine 0.6 mg/dL (0.55-1.3) 03/30/19 03:06 Est GFR (CKD-EPI)AfAm 145.80 03/30/19 03:06 Est GFR (CKD-EPI)NonAf 125.80 03/30/19 03:06 Random Glucose 104 mg/dL (74-106) 03/30/19 03:06 Lactic Acid 0.6 mmol/L (0.4-2.0) 03/30/19 03:06 Calcium 9.5 mg/dL (8.5-10.1) 03/30/19 03:06 Total Bilirubin 2.4 mg/dL (0.2-1) H 03/30/19 03:06 AST 755 U/L (15-37) H 03/30/19 03:06 ALT 626 U/L (13-61) H 03/30/19 03:06 Alkaline Phosphatase 183 U/L (45-117) H 03/30/19 03:06 Total Protein 7.8 g/dl (6.4-8.2) 03/30/19 03:06 Albumin 4.3 g/dl (3.4-5.0) 03/30/19 03:06 Lipase 121 U/L (73-393) 03/30/19 03:06 Urine Color Dk yellow 03/30/19 03:01 Urine Appearance Clear 03/30/19 03:01 Urine pH 6.0 (5.0-8.0) 03/30/19 03:01 Ur Specific Mcgrew 1.029 (1.010-1.035) 03/30/19 03:01 Urine Protein Trace (NEGATIVE) 03/30/19 03:01 Urine Glucose (UA) Negative (NEGATIVE) 03/30/19 03:01 Urine Ketones Negative (NEGATIVE) 03/30/19 03:01 Urine Blood Negative (NEGATIVE) 03/30/19 03:01 Urine Nitrite Negative (NEGATIVE) 03/30/19 03:01 Urine Bilirubin 2+ (NEGATIVE) H 03/30/19 03:01 Urine Urobilinogen 1.0 mg/dL (0.2-1.0) 03/30/19 03:01 Ur Leukocyte Esterase Negative (NEGATIVE) 03/30/19 03:01 Urine HCG, Qual Negative 03/30/19 03:01 Blood Type O POSITIVE 03/30/19 04:46 Antibody Screen Negative 03/30/19 04:46 Active Medications Lactated Ringer's (Lactated Ringers Solution) 1,000 mls @ 100 mls/hr IV ASDIR HUBERT Ibuprofen (Motrin -) 600 mg PO Q6H PRN PRN Reason: FEVER Ondansetron HCl (Zofran Injection) 4 mg IVPUSH Q6H PRN PRN Reason: NAUSEA IMAGING: -Abdominal US: Multiple gallstones with thickening of the gallbladder wall and without evidence of pericholecystic free fluid. Correlate to determine further evaluation and to rule out colitis. Significantly dilated common bile duct for which further evaluation with MRCP is recommended to rule out distal obstruction /stones. Fatty liver versus hepatocellular disease. Please correlate with liver enzymes. Nonvisualization of the pancreas likely due to overlying bowel gas ASSESSMENT/PLAN: 24 y/o F with no significant PMHx presents Abdominal pain. #Abdominal pain -Concerning for Choledocholithiasis (RUQ/Epigastric pain, Elevated TBili and Alk Phos) -AFebrile, Hemodynamically Stable, without leukocytosis or jaundice on exam -Abdominal US found multiple gallstones, thickening of the GB wall, Significantly dilated common bile duct -GI, Gen Surg consulted by ED--As per ED staff, GI recommends Ancef dose and ERCP -Check D. Sanya, Blood cultures (before Abx dose) -Serial abdominal exams, monitor vital signs Q4h -NPO; Advance diet as per GI -IV Hydration via LR @ 100 mls/hr -Antiemesis via Ondansetron -Analgesia via Morphine #Obesity -Counseled on weight loss, low fat diet #FEN -IVF via LR -Lytes wnl, Replete PRN -NPO for ERCP #PPx -DVT: SCDs Dispo: Admit to med-surg, For ERCP Today Visit type - Emergency Visit Emergency Visit: Yes ED Registration Date: 03/30/19 Care time: The patient presented to the Emergency Department on the above date and was hospitalized for further evaluation of their emergent condition. - New Patient This patient is new to me today: Yes Date on this admission: 03/30/19 - Critical Care Critical Care patient: No ATTENDING PHYSICIAN STATEMENT I saw and evaluated the patient. I reviewed the resident's note and discussed the case with the resident. I agree with the resident's findings and plan as documented. SUBJECTIVE: OBJECTIVE: ASSESSMENT AND PLAN: <Praful Bundy - Last Filed: 03/31/19 12:31> Seen and examined; agree with above aside from as supplemented in my own documentation. ATTENDING PHYSICIAN STATEMENT I saw and evaluated the patient. I reviewed the resident's note and discussed the case with the resident. I agree with the resident's findings and plan as documented. SUBJECTIVE: OBJECTIVE: ASSESSMENT AND PLAN:
[2019-03-30] MEDS ORDERED: MIDAZOLAM HCL 2 MG/2 ML SINGLE DOSE VIAL ONE (13:43)
--- NOTE | 2019-03-30 14:01 | EKG ---
Test Reason : Blood Pressure : / mmHG Vent. Rate : 072 BPM Atrial Rate : 072 BPM P-R Int : 178 ms QRS Dur : 084 ms QT Int : 404 ms P-R-T Axes : 050 -06 -03 degrees QTc Int : 442 ms NORMAL SINUS RHYTHM NORMAL ECG NO PREVIOUS ECGS AVAILABLE Confirmed by OLI HOUGH MD ([id number]) on 03/30/2019 2:01:26 PM Referred By: Confirmed By:OLI HOUGH MD
[2019-03-30] MEDS ORDERED: IOHEXOL 300 MG/ML INFUS..BTL IJ ONE (14:35)
--- NOTE | 2019-03-30 15:17 | PN ---
Progress Note (short form) - Note Progress Note: GI Procedure NOte: The GI Consultation note will follow. We proceeded with the ERCP without delay in the patient's best interestsThe patient was interviewed, examined and the risks and benefits of ERCP were discussed in detail before undertaking the procedure. This included informing her of the potential for such complications as perforation, hemorrhage and ERCP induced pancreatitis leading to multiorgan failure. All of her questions were answered prior to Ellie's signing of the consent form. She did receive antibiotics and an Indocin suppository in the ER. ERCP discovered a large stone stuck in the mid CBD which could not be extracted using the balloon alone. This will likely require ultrasonic lithotripsy with choledochoscopic guidance which is not available here. She will be referred to a tertiary care center for this and will be given Actigal in the interim. Brisk Ringer's lactate hydration will be given to try to prevent pancreatitis.
--- NOTE | 2019-03-30 16:58 | PN ---
Progress Note (short form) - Note Progress Note: surgery pt with noted choledocholithiasis with only stent placed in cbd during ercp. plan for elective cholecystectomy after stone removed. no inpatient general surgical intervention.
--- NOTE | 2019-03-30 17:16 | CON.GI ---
Consult Consult Specialty:: Gastroenterology ( covering the [facility] GI service) Referred by:: Luis Solis MD Reason for Consultation:: Choledocholithiasis - History of Present Illness Chief Complaint: Abdominal pain History of Present Illness: 24F having been having short 5 minutes duration episodes of postprandial biliary colic for the past month. Last night she was awoken by severe pain which persisted prompting her to come to the ER. She has marked LFT elevations , and stones with a dilated CBD on ultrasoound. - History Source History Provided By: Patient Limitations to Obtaining History: No Limitations - Past Medical History Hepatobiliary: Yes: Cholelithiasis, Choledocholithiasis, Other (fatty liver) - Past Surgical History Past Surgical History: Yes: (x 2) - Alcohol/Substance Use Hx Alcohol Use: No History of Substance Use: reports: None - Smoking History Smoking history: Never smoked Have you smoked in the past 12 months: No - Social History Usual Living Arrangement: With Spouse ADL: Independent History of Recent Travel: No Home Medications - Allergies Allergies/Adverse Reactions: Allergies Allergy/AdvReac Type Severity Reaction Status Date / Time No Known Allergies Allergy Verified 11/18/18 17:03 Family Disease History - Family Disease History Family History: Unable to Obtain (taken urgently for ERCP) Review of Systems Unable to obtain ROS, reason: taken urgently for ERCP Physical Exam-GI Vital Signs: Vital Signs Temperature 98.6 F 03/30/19 15:20 Pulse Rate 94 H 03/30/19 16:24 Respiratory Rate 17 03/30/19 16:24 Blood Pressure 122/69 03/30/19 16:24 O2 Sat by Pulse Oximetry (%) 99 03/30/19 16:24 CBC,CMP WBC 4.9 K/mm3 (4.0-10.0) 03/30/19 03:06 RBC 4.66 M/mm3 (3.60-5.2) 03/30/19 03:06 Hgb 13.3 GM/dL (10.7-15.3) 03/30/19 03:06 Hct 39.5 % (32.4-45.2) D 03/30/19 03:06 MCV 84.8 fl (80-96) 03/30/19 03:06 MCH 28.6 pg (25.7-33.7) 03/30/19 03:06 MCHC 33.8 g/dl (32.0-36.0) 03/30/19 03:06 RDW 13.6 % (11.6-15.6) D 03/30/19 03:06 Plt Count 240 K/MM3 (134-434) 03/30/19 03:06 MPV 9.2 fl (7.5-11.1) 03/30/19 03:06 Absolute Neuts (auto) 3.3 K/mm3 (1.5-8.0) 03/30/19 03:06 Neutrophils % 67.4 % (42.8-82.8) 03/30/19 03:06 Lymphocytes % 23.7 % (8-40) 03/30/19 03:06 Monocytes % 7.4 % (3.8-10.2) 03/30/19 03:06 Eosinophils % 0.9 % (0-4.5) 03/30/19 03:06 Basophils % 0.6 % (0-2.0) 03/30/19 03:06 Nucleated RBC % 0 % (0-0) 03/30/19 03:06 Sodium 138 mmol/L (136-145) 03/30/19 03:06 Potassium 3.8 mmol/L (3.5-5.1) 03/30/19 03:06 Chloride 103 mmol/L (98-107) 03/30/19 03:06 Carbon Dioxide 26 mmol/L (21-32) 03/30/19 03:06 Anion Gap 9 MMOL/L (8-16) 03/30/19 03:06 BUN 10.4 mg/dL (7-18) 03/30/19 03:06 Creatinine 0.6 mg/dL (0.55-1.3) 03/30/19 03:06 Est GFR (CKD-EPI)AfAm 145.80 03/30/19 03:06 Est GFR (CKD-EPI)NonAf 125.80 03/30/19 03:06 Random Glucose 104 mg/dL (74-106) 03/30/19 03:06 Lactic Acid 0.6 mmol/L (0.4-2.0) 03/30/19 03:06 Calcium 9.5 mg/dL (8.5-10.1) 03/30/19 03:06 Total Bilirubin 2.4 mg/dL (0.2-1) H 03/30/19 03:06 AST 755 U/L (15-37) H 03/30/19 03:06 ALT 626 U/L (13-61) H 03/30/19 03:06 Alkaline Phosphatase 183 U/L (45-117) H 03/30/19 03:06 Total Protein 7.8 g/dl (6.4-8.2) 03/30/19 03:06 Albumin 4.3 g/dl (3.4-5.0) 03/30/19 03:06 Lipase 121 U/L (73-393) 03/30/19 03:06 Current Medications Generic Name Dose Route Start Last Admin Trade Name Freq PRN Reason Stop Dose Admin Lactated Ringer's 1,000 ml in 1,000 mls @ 250 mls/hr 03/30/19 15:30 Lactated Ringers Solution IV 03/30/19 21:30 ASDIR HUBERT Lactated Ringer's 1,000 ml in 1,000 mls @ 200 mls/hr 03/30/19 21:30 Lactated Ringers Solution IV 03/31/19 03:30 ASDIR HUBERT Lactated Ringer's 1,000 ml in 1,000 mls @ 175 mls/hr 03/31/19 03:30 Lactated Ringers Solution IV 03/31/19 12:30 ASDIR HUBERT Lactated Ringer's 1,000 ml in 1,000 mls @ 150 mls/hr 03/31/19 12:30 Lactated Ringers Solution IV ASDIR HUBERT Metronidazole 500 mg in 100 mls @ 100 mls/hr 03/30/19 21:00 Flagyl 500mg Premixed Ivpb - IVPB Q6H-IV HUBERT Morphine Sulfate 4 mg 03/30/19 13:34 Morphine Sulfate IVPUSH Q4H PRN PAIN LEVEL 7 - 10 Ondansetron HCl 4 mg 03/30/19 12:10 Zofran Injection IVPUSH Q6H PRN NAUSEA Constitutional: Yes: Well Nourished Eyes: Yes: Sclera Icterus HENT: Yes: Atraumatic Neck: Yes: Supple Cardiovascular: Yes: Regular Rate and Rhythm, Tachycardia Respiratory: Yes: CTA Bilaterally Gastrointestinal Inspection: Yes: Scars (healed Pfannensteil incisions) ...Auscultate: Yes: Hypoactive Bowel Sounds ...Palpate: Yes: Tenderness (RUQ tenderness without peritoneal signs) ...Rectal Exam: Yes: Deferred Edema: No Psychiatric: Yes: Alert, Oriented Labs: CBC, BMP 03/30/19 03:06 03/30/19 03:06 INR, PTT INR 1.10 (0.83-1.09) H 03/30/19 04:46 Laboratory Tests 03/30/19 03/30/19 03:06 03:06 WBC 4.9 Total Bilirubin 2.4 H AST 755 H ALT 626 H Alkaline Phosphatase 183 H Imaging - Results Ultrasound: Report Reviewed ( Final Report US ABDOMEN US -LIMITED Show Printer-Friendly Version Patient Name: Pederson, Bren : 1994 ID: [id number] Study Date: 30-Mar-2019 07:49 Raeuriel Saucedo Name : BREN PEDERSON DEPARTMENT OF RADIOLOGY Phys: Andrea Carvajal RESIDENT : 1995 Age: 24 Sex: F [facility] Acct: [id number] Loc: [address] Exam Date: 03/30/19 Status: [place] [address] Unit Number: [id number] EXAM#: TYPE/EXAM: RESULT: [id number] US/ABDOMEN US -LIMITED Right upper quadrant pain. Rule out cholecystitis Right upper abdomen ultrasound. The liver is enlarged measuring 18.5 cm in sagittal length with a moderately dense and coarse echotexture. Gallbladder is adequately distended with multiple intraluminal stones. There is thickening of its wall measuring 8 mm without evidence of pericholecystic free fluid. No gross intrahepatic bile duct dilatation is seen. There is significant dilatation of the common bile duct measuring 1.5 cm in diameter. Upper limits of normal is 6 mm. The right kidney measures 11.6 cm sagittal length and appears unremarkable. Nonvisualization of the pancreas likely due to overlying bowel gas Visualized portion of the proximal abdominal aorta and inferior vena cava appear unremarkable. Normal flow in the main portal vein. IMPRESSION: Multiple gallstones with thickening of the gallbladder wall and without evidence of pericholecystic free fluid. Correlate to determine further evaluation and to rule out colitis. Significantly dilated common bile duct for which further evaluation with MRCP is recommended to rule out distal obstruction/stones. Fatty liver versus hepatocellular disease. Please correlate with liver enzymes. Nonvisualization of the pancreas likely due to overlying bowel gas Reported By: Jenny Castle MD 03/30/19841 ANDREA CARVAJAL Technologist: Susannah Uribe Transcribed Date/Time: 841 Drug Safety Scientist: Jenny Castle Printed Date/Time: By: Signed by : Jenny Castle Signed on: 30-Mar-2019 08:44) Problem List - Problems (1) Choledocholithiasis Code(s): K80.50 - CALCULUS OF BILE DUCT W/O CHOLANGITIS OR CHOLECYST W/O OBST (2) Biliary colic symptom Code(s): K80.50 - CALCULUS OF BILE DUCT W/O CHOLANGITIS OR CHOLECYST W/O OBST (3) Abnormal liver enzymes Code(s): R74.8 - ABNORMAL LEVELS OF OTHER SERUM ENZYMES (4) Obstructive jaundice Code(s): K83.1 - OBSTRUCTION OF BILE DUCT Assessment/Plan Assessment: Biliary colic with obstructive jaundice due to choledocholithiasis and at risk for cholangitis and biliary pancreatittis Plan: After informed consent was obtained ( including informing the patient of the potential for such complications as perforation. hemorrhage and ERCP induced pancreatitis leading to multiorgan failure ) and after antibiotics and an Indocin suppository were administered ERCP was performed. A large stone was stuck in the mid-CBD whch could not be extracted so a 7Fr x 5cm length double pigtail stent was inserted to relieve the obstruction. Brisk RL has been ordered to try to prevent pancreatitis. She will ultimately need to have a repeat ERCP at a tertiary care center to do ultrasonic lithotripsy under choledochoscopic guidance ( not available here), hopefully as an outpatient. Would defer GB surgery until then unless cholecystitis occurs. Discussed with with a printing supervisor and with Dr Garland. Continue antibiotics
[2019-03-30 17:37] VITALS: BMI 35.0
[2019-03-31] MEDS ORDERED: LACTATED RINGERS SOLUTION 1,000 ML/1,000 ML INFUS.BAG IV SCH ×2 (03:30→12:30)
[2019-03-31 08:09] LABS: BASO % 0.4 % (0-2.0); EOS % 0.1 % (0-4.5); HEMATOCRIT 35.3 % (32.4-45.2); LYMPH % 15.4 % (8-40); MCH 28.7 pg (25.7-33.7); MCHC 33.8 g/dl (32.0-36.0); MEAN CELL VOLUME 84.8 fl (80-96); MEAN PLT VOLUME 9.9 fl (7.5-11.1); MONO % 5.8 % (3.8-10.2); NEUT % 78.3 % (42.8-82.8); PLATELET COUNT 209 K/MM3 (134-434); RBC 4.17 M/mm3 (3.60-5.2); RDW 13.7 % (11.6-15.6); WHITE BLOOD COUNT 8.1 K/mm3 (4.0-10.0)
[2019-03-31 08:27] LABS: BILIRUBIN,DIRECT 2.9 mg/dL (0.0-0.2)
[2019-03-31 08:28] LABS: ALBUMIN 3.4 g/dl (3.4-5.0); BILIRUBIN,TOTAL 3.8 mg/dL (0.2-1); BLOOD UREA NITROGEN 4.5 mg/dL (7-18); CALCIUM 8.6 mg/dL (8.5-10.1); CREATININE 0.5 mg/dL (0.55-1.3); PHOSPHOROUS 2.4 mg/dL (2.5-4.9); POTASSIUM 3.5 mmol/L (3.5-5.1); TOT PROT 6.5 g/dl (6.4-8.2)
--- NOTE | 2019-03-31 12:21 | PN ---
Physical Exam: SUBJECTIVE: Patient seen and examined; noted to have elevated lipase yesterday. Discussed with Dr. Russo and noted to be expected and 2/2 manipulation. Clinically stable. Advancing diet to full liquid. Should she have worsening pain, etc. she will be put NPO and treat for pancreatitis but not clinically showing now. ERCP report reviewed; noted high grade obstruction with stent placement 10 sys ROS done and negative aside from HPI OBJECTIVE: Vital Signs Period Temp Pulse Resp BP Sys/Real Pulse Ox Last 24 Hr 98.1 F-99.2 F 89-112 11-18 116-132/62-80 92-100 GENERAL: The patient is awake, alert, and fully oriented, in no acute distress. HEAD: Normal with no signs of trauma. EYES: PERRL, extraocular movements intact, sclera anicteric, conjunctiva clear. No ptosis. ENT: Ears normal, nares patent, oropharynx clear without exudates, moist mucous membranes. NECK: Trachea midline, full range of motion, supple. LUNGS: Breath sounds equal, clear to auscultation bilaterally, no wheezes, no crackles, no accessory muscle use. HEART: Regular rate and rhythm, S1, S2 without murmur, rub or gallop. ABDOMEN: Soft, improved tenderness from yesterday, nondistended, normoactive bowel sounds EXTREMITIES: 2+ pulses, warm, well-perfused, no edema. NEUROLOGICAL: Cranial nerves II through XII grossly intact. Normal speech, gait not observed. PSYCH: Normal mood, normal affect. SKIN: Warm, dry, normal turgor, no rashes or lesions noted Laboratory Results - last 24 hr 03/31/19 03/31/19 03/31/19 07:27 07:27 07:27 WBC 8.1 RBC 4.17 Hgb 12.0 Hct 35.3 MCV 84.8 MCH 28.7 MCHC 33.8 RDW 13.7 Plt Count 209 MPV 9.9 Absolute Neuts (auto) 6.3 Neutrophils % 78.3 Lymphocytes % 15.4 D Monocytes % 5.8 Eosinophils % 0.1 D Basophils % 0.4 Nucleated RBC % 0 Sodium 141 Potassium 3.5 Chloride 106 Carbon Dioxide 24 Anion Gap 11 BUN 4.5 L Creatinine 0.5 L Est GFR (CKD-EPI)AfAm 154.81 Est GFR (CKD-EPI)NonAf 133.57 Random Glucose 88 Calcium 8.6 Phosphorus 2.4 L Magnesium 2.0 Total Bilirubin 3.8 H Direct Bilirubin 2.9 H AST 448 H ALT 598 H Alkaline Phosphatase 183 H C-Reactive Protein 1.6 H Total Protein 6.5 Albumin 3.4 Total Amylase 152 H Lipase 2646 H Active Medications Generic Name Dose Route Start Last Admin Trade Name Freq PRN Reason Stop Dose Admin Lactated Ringer's 1,000 ml in 1,000 mls @ 175 mls/hr 03/31/19 03:30 03/31/19 03:35 Lactated Ringers Solution IV 03/31/19 12:30 175 mls/hr ASDIR HUBERT Administration Lactated Ringer's 1,000 ml in 1,000 mls @ 150 mls/hr 03/31/19 12:30 Lactated Ringers Solution IV ASDIR HUBERT Metronidazole 500 mg in 100 mls @ 100 mls/hr 03/30/19 21:00 03/31/19 08:47 Flagyl 500mg Premixed Ivpb - IVPB 100 mls/hr Q6H-IV HUBERT Administration Morphine Sulfate 4 mg 03/30/19 13:34 Morphine Sulfate IVPUSH Q4H PRN PAIN LEVEL 7 - 10 Ondansetron HCl 4 mg 03/30/19 12:10 Zofran Injection IVPUSH Q6H PRN NAUSEA ASSESSMENT/PLAN: Patient presents with choledocholithiasis and is s/p ERCP postprocedure day 1. She will require cholecystectomy post procedure per general surgery; Dr. Garland following and management per his service. Elevated lipase noted; discussed with Dr. Russo and this is likely secondary to manipulation with procedure. Overall she is stable, appropriate for the floor. Continue with full liquids, making NPO prior to sgy. Monitoring on the floor. Appreciate subspecialty management in the care of this complex patient. # Choledocholithiasis (LFTs down bili slightly up, clinically stable. No fever or clinical signs of infection. Stent placed in CBD during ERCP. Management per GI/sgy) # Elevated lipase s/p ERCP (monitor clinically, discussed with GI) # Need for elective cholecystectomy (per sgy no IP intervention needed) # Transaminitits, 2/2 above Full Code Visit type - Emergency Visit Emergency Visit: No - New Patient This patient is new to me today: No - Critical Care Critical Care patient: No
--- NOTE | 2019-03-31 15:42 | PN.GI ---
GI Progress Note Subjective: GI NOte ( covering the [facility] GI service) : Pain free today. Tolerating liquids. I discussed the ERCP findings and have advised Ellie to followup with Dr Meek Buckley at [facility] for choledochoscopic lithrotripsy to remove her large CBD stone. I have provided her with his phone number and will start Actigal. - Objective Vital Signs: Vital Signs Temperature 98.8 F 03/31/19 10:00 Pulse Rate 83 03/31/19 10:00 Respiratory Rate 18 03/31/19 10:00 Blood Pressure 117/71 03/31/19 10:00 O2 Sat by Pulse Oximetry (%) 96 03/31/19 09:00 Laboratory Tests 03/30/19 03/31/19 03/31/19 03:06 07:27 07:27 Total Bilirubin 2.4 H 3.8 H Direct Bilirubin 2.9 H AST 755 H 448 H ALT 626 H 598 H Alkaline Phosphatase 183 H 183 H C-Reactive Protein 1.6 H Total Amylase 152 H Lipase 2646 H Constitutional: Calm Eyes: Yes: Sclera Icterus ...Auscultate: Yes: Normoactive Bowel Sounds ...Palpate: Yes: Soft, Other (nontender) Labs: CBC, BMP 03/31/19 07:27 03/31/19 07:27 INR, PTT INR 1.10 (0.83-1.09) H 03/30/19 04:46 Assessment/Plan Assessment: Biliary colic with obstructive jaundice due to choledocholithiasis Plan: -- Day 1 s/p ERCP with stent insertion -- Advance diet as tolerated -- Repeat ERCP at a tertiary care center to do ultrasonic lithotripsy under choledochoscopic guidance ( not available here). Would defer GB surgery until then unless cholecystitis occurs. Followup with Dr Meek Buckley at [facility] for choledochoscopic lithrotripsy to remove her large CBD stone. I have provided her with his phone number and will start Actigal. and with Dr Garland. -- Continue antibiotics Discussed with Dr Bundy Problem List - Problems (1) Choledocholithiasis Code(s): K80.50 - CALCULUS OF BILE DUCT W/O CHOLANGITIS OR CHOLECYST W/O OBST (2) Biliary colic symptom Code(s): K80.50 - CALCULUS OF BILE DUCT W/O CHOLANGITIS OR CHOLECYST W/O OBST (3) Abnormal liver enzymes Code(s): R74.8 - ABNORMAL LEVELS OF OTHER SERUM ENZYMES (4) Obstructive jaundice Code(s): K83.1 - OBSTRUCTION OF BILE DUCT
[2019-03-31] MEDS: morphine SULFATE 4 MG/ML VIAL IVPUSH PRN ×2 (15:51→23:54)
[2019-03-31] MEDS: ONDANSETRON 4 MG/2 ML VIAL IVPUSH PRN ×2 (17:51→23:54)
[2019-03-31] MEDS: URSODIOL 300 MG CAPSULE PO SCH (22:37)
[2019-03-31 23:49] VITALS: PULSE 80
--- NOTE | 2019-04-01 09:41 | PN ---
Physical Exam: SUBJECTIVE: Patient seen and examined; no new issues overnight. Pain remains improved. Discussing with Dr. Russo. She will need to followup with [facility] ( Dr. Buckley) and was provided contact info for repeat ERCP at tertiary center to retrieve stone. She was started on Actigal without any issues. She is hemodynamically stable and afebrile. 10 sys ROS done and negative aside from HPI OBJECTIVE: Vital Signs Period Temp Pulse Resp BP Sys/Real Pulse Ox Last 24 Hr 98.3 F-98.8 F 78-83 16-201 99-121/55-71 96 GENERAL: The patient is awake, alert, and fully oriented, in no acute distress. HEAD: Normal with no signs of trauma. EYES: PERRL, extraocular movements intact, sclera anicteric, conjunctiva clear. No ptosis. ENT: Ears normal, nares patent, oropharynx clear without exudates, moist mucous membranes. NECK: Trachea midline, full range of motion, supple. LUNGS: Breath sounds equal, clear to auscultation bilaterally, no wheezes, no crackles, no accessory muscle use. HEART: Regular rate and rhythm, S1, S2 without murmur, rub or gallop. ABDOMEN: Soft, nontender, nondistended, normoactive bowel sounds, no guarding EXTREMITIES: 2+ pulses, warm, well-perfused, no edema. NEUROLOGICAL: Cranial nerves II through XII grossly intact. Normal speech, gait not observed. PSYCH: Normal mood, normal affect. SKIN: Warm, dry, normal turgor, no rashes or lesions noted Active Medications Generic Name Dose Route Start Last Admin Trade Name Freq PRN Reason Stop Dose Admin Lactated Ringer's 1,000 ml in 1,000 mls @ 150 mls/hr 03/31/19 12:30 03/31/19 13:44 Lactated Ringers Solution IV 150 mls/hr ASDIR HUBERT Administration Metronidazole 500 mg in 100 mls @ 100 mls/hr 03/30/19 21:00 04/01/19 03:00 Flagyl 500mg Premixed Ivpb - IVPB 100 mls/hr Q6H-IV HUBERT Administration Morphine Sulfate 4 mg 03/30/19 13:34 03/31/19 23:54 Morphine Sulfate IVPUSH 4 mg Q4H PRN Administration PAIN LEVEL 7 - 10 Ondansetron HCl 4 mg 03/30/19 12:10 03/31/19 23:54 Zofran Injection IVPUSH 4 mg Q6H PRN Administration NAUSEA Ursodiol 300 mg 03/31/19 22:00 03/31/19 22:37 Actigal - PO 300 mg BID HUBERT Administration ASSESSMENT/PLAN: Patient presented for choledocholithiasis and is POD2 ERCP with stenting for CBD stent; she will need to followup with Dr. Buckley at [facility] for repeat ERCP at tertiary center. Advancing diet per GI, monitoring on the floor. When cleared by subspecialists and tolerating diet (tolerated full liquid without issue yesterday) she will be able to go home for followup. Surgical input noted and will need eventual cholecystectomy as well. Problems include: -Choledocholithiasis s/p ERCP POD#2 -Obesity (BMI 35) DC IV pain meds and start PO APAP Dispo per subspecialty services; will discuss. Full Code Visit type - Emergency Visit Emergency Visit: No - New Patient This patient is new to me today: No - Critical Care Critical Care patient: No
[2019-04-01] MEDS ORDERED: PT OWN MED DRAWER 7, Y5N ONE (09:43)
[2019-04-01 09:45] LABS: BASO % 0.5 % (0-2.0); EOS % 0.3 % (0-4.5); HEMATOCRIT 35.9 % (32.4-45.2); HEMOGLOBIN 12.1 GM/dL (10.7-15.3); LYMPH % 21.7 % (8-40); MCH 28.6 pg (25.7-33.7); MCHC 33.8 g/dl (32.0-36.0); MEAN CELL VOLUME 84.7 fl (80-96); MEAN PLT VOLUME 9.8 fl (7.5-11.1); NEUT % 71.5 % (42.8-82.8); PLATELET COUNT 207 K/MM3 (134-434); RBC 4.24 M/mm3 (3.60-5.2); RDW 13.6 % (11.6-15.6)
[2019-04-01 09:53] LABS: BLOOD UREA NITROGEN 5.9 mg/dL (7-18); CALCIUM 9.1 mg/dL (8.5-10.1); CREATININE 0.5 mg/dL (0.55-1.3); MAGNESIUM 1.9 mg/dL (1.8-2.4); POTASSIUM 3.6 mmol/L (3.5-5.1)
[2019-04-01 09:55] LABS: BILIRUBIN,DIRECT 2.1 mg/dL (0.0-0.2)
[2019-04-01 09:58] LABS: ALBUMIN 3.6 g/dl (3.4-5.0); BILIRUBIN,DIRECT 2.1 mg/dL (0.0-0.2); BILIRUBIN,TOTAL 2.7 mg/dL (0.2-1); TOT PROT 6.9 g/dl (6.4-8.2)
[2019-04-01] MEDS: URSODIOL 300 MG CAPSULE PO SCH (10:42)
[2019-04-01 11:07] VITALS: BP 129/79; TEMP 98.5
--- NOTE | 2019-04-01 12:17 | DS ---
Physical Exam: SUBJECTIVE: Patient seen and examined; see today's note for subjective and objective data regarding PE for billing, etc. Discussed with Dr. Russo and clear to go home. Followup with Dr Meek Mcmullen at [facility] for choledochoscopic lithrotripsy to remove her large CBD stone. Number provided by GI. GI also started her on Actigel. Completing 7 day course PO metro/LQ. Verbalized understanding OBJECTIVE: Vital Signs Period Temp Pulse Resp BP Sys/Real Pulse Ox Last 24 Hr 98.3 F-98.8 F 78-80 16-201 99-129/55-79 96-96 LABS Laboratory Results - last 24 hr 04/01/19 04/01/19 04/01/19 08:37 08:37 08:37 WBC 6.0 RBC 4.24 Hgb 12.1 Hct 35.9 MCV 84.7 MCH 28.6 MCHC 33.8 RDW 13.6 Plt Count 207 MPV 9.8 Absolute Neuts (auto) 4.3 Neutrophils % 71.5 Lymphocytes % 21.7 D Monocytes % 6.0 Eosinophils % 0.3 D Basophils % 0.5 Nucleated RBC % 0 Sodium 137 Potassium 3.6 Chloride 102 Carbon Dioxide 25 Anion Gap 9 BUN 5.9 L Creatinine 0.5 L Est GFR (CKD-EPI)AfAm 154.81 Est GFR (CKD-EPI)NonAf 133.57 Random Glucose 86 Calcium 9.1 Magnesium 1.9 Total Bilirubin Direct Bilirubin 2.1 H AST ALT Alkaline Phosphatase C-Reactive Protein 1.3 H Total Protein Albumin Total Amylase 63 Lipase 566 H 04/01/19 08:37 WBC RBC Hgb Hct MCV MCH MCHC RDW Plt Count MPV Absolute Neuts (auto) Neutrophils % Lymphocytes % Monocytes % Eosinophils % Basophils % Nucleated RBC % Sodium Potassium Chloride Carbon Dioxide Anion Gap BUN Creatinine Est GFR (CKD-EPI)AfAm Est GFR (CKD-EPI)NonAf Random Glucose Calcium Magnesium Total Bilirubin 2.7 H Direct Bilirubin 2.1 H AST 356 H ALT 599 H Alkaline Phosphatase 207 H C-Reactive Protein Total Protein 6.9 Albumin 3.6 Total Amylase Lipase Microbiology 03/30/19 11:34 Blood - Peripheral Venous Blood Culture - Preliminary NO GROWTH OBTAINED AFTER 48 HOURS, INCUBATION TO CONTINUE FOR 3 DAYS. 03/30/19 11:34 Blood - Peripheral Venous Blood Culture - Preliminary NO GROWTH OBTAINED AFTER 48 HOURS, INCUBATION TO CONTINUE FOR 3 DAYS. 03/30/19 03:01 Urine - Urine Clean Catch Urine Culture - Final NO GROWTH OBTAINED Radiology Results: RUQ US with thickened GB wall with no pericholecystic fluid; 1.5cm dilated CBD HOSPITAL COURSE: Patient presented to the ER with RUQ pain and was found to have a 1.5cm dilated CBD on u/s. Had emergent ERCP with Dr. Russo; stent was placed and she will need followup with tertiary center to ensure stone removal as it could not be removed-likely needs ultrasonic lithotripsy under choledochoscopic guidance which isn't available here. Dr. Russo gave her Dr. Mcmullen's number from [facility] and she was informed of need for urgent referral and verbalized understanding. She will complete course of PO abx with metro/LQ and followup with Dr. Mcmullen. She will need to see Dr. Garland for GB removal once this is done and this was explained to her by myself and specialty services. She verbalized understanding with when to return to hospital with warning signs and with planned OP followup, etc. Discharging home. Date of Admission:03/30/19 Date of Discharge: 04/01/19 Per procedure note: A large stone was stuck in the mid-CBD whch could not be extracted so a 7Fr x 5cm length double pigtail stent was inserted to relieve the obstruction. Brisk RL has been ordered to try to prevent pancreatitis. She will ultimately need to have a repeat ERCP at a tertiary care center to do ultrasonic lithotripsy under choledochoscopic guidance ( not available here), hopefully as an outpatient. Would defer GB surgery until then unless cholecystitis occurs. Discussed with with a interpreter deaf and with Dr Garland. Minutes to complete discharge: 33 Discharge Summary Reason For Visit: COMMON BILE DUCT CALCULUS Current Active Problems Abnormal liver enzymes (Acute) Biliary colic symptom (Acute) Cholecystitis (Acute) Choledocholithiasis (Acute) Obstructive jaundice (Acute) Condition: Stable - Instructions Diet, Activity, Other Instructions: Followup with Dr. Mcmullen at [facility] for repeat ERCP. THIS IS ESSENTIAL!!! Dr. Russo gave you contact information; please call to ensure appointment right away and contact us at [facility] if any issues. Please take the Actigel (new medication) as prescribed; this will be sent to your pharmacy. Take care not to miss a dose. Complete 7 day course of metronidazole and levaquin. Please return to the emergency room or call 911 immediately if you experience any of the following: -Fevers/chills/malaise -Worsening abdominal pain -Nausea/vomiting/diarrhea -Blood in your stool Monitor yourself at home for fevers Diet: Resume home diet as tolerated, stay well hydrated Activity: Resume normal activity Followup: -PCP: 3-5 days (referral given for resident clinic if you are in need-please call us if you have trouble scheduling followup in specified time) -Dr. Mcmullen: DEXTER as per Dr. Russo -Dr. Russo as needed -Dr. Garland 1-2 weeks, needs post ERCP followup [facility] Referrals: Juan Charles MD [Staff Physician] - (PLEASE CALL FOR FOLLOWUP IF NO PCP AVAILABLE TO YOU IN 3-5 DAYS; IF ANY ISSUES SCHEDULING PLEASE CALL OUR DEPARTMENT) Yassine Russo MD [Staff Physician] - (Please call for followup as needed. ENSURE YOU CALL DR. MCMULLEN INSTRUCTED FOR REPEAT ERCP PER GI) Fernando Garland MD [Staff Physician] - 2 Weeks (Please call for followup; you need ERCP but will need gallbladder assessed by your surgeon.) Disposition: HOME - Home Medications Comprehensive Discharge Medication List: Ambulatory Orders Ursodiol [Actigal -] 300 mg PO BID 30 Days #60 capsule 04/01/19 This patient is new to me today: No Emergency Visit: No Critical Care patient: No - Discharge Referral Referred to [facility] Yes Physician Referral: Redd Gonzales MD ([facility]) ([facility])
== END 2019-04-01 15:00 | disposition home or self-care (01) ==
LOC: JER 02:13 → JERBED 09:33 → JSAMEDAYSX 12:29 → J6S 16:32
PROVIDERS: ADMIT Internal Medicine; ATTEND Internal Medicine
PROC: 0F798DZ Dilation of Common Bile Duct with Intraluminal Device, Via Natural or Artificial Opening Endoscopic (ICD-10-PCS; 2019-03-30)
PROC: 0FC98ZZ Extirpation of Matter from Common Bile Duct, Via Natural or Artificial Opening Endoscopic (ICD-10-PCS; principal; 2019-03-30 11:45)
DX: K80.41 Calculus of bile duct with cholecystitis, unspecified, with obstruction (principal); E66.8 Other obesity; Z68.35 Body mass index [BMI] 35.0-35.9, adult; K76.0 Fatty (change of) liver, not elsewhere classified; R74.8 Abnormal levels of other serum enzymes
CPT/HCPCS: 36415; 76705-TC; 80048; 80053; 80076; 81003; 82150; 82248; 83605; 83690; 83735; 84100; 84703; 85025; 85610; 85730; 86140; 86850; 86900; 86901; 87040; 87086; 93005; 93010; 94010; 99284-25; J0131; J7030